=== PATIENT | female | born 1980 | race Caucasian/White ===

== ENCOUNTER 2020-05-08 23:52 | Emergency (ER) | payer BC ==
--- NOTE | 2020-05-09 00:42 | EDM.PDOC ---
ED HPI GENERAL MEDICAL PROBLEM - General Chief Complaint: Lower Extremity Injury/Pain Stated Complaint: LT KNEE INJUR Time Seen by Provider: 05/09/20 00:36 - History of Present Illness INITIAL COMMENTS - FREE TEXT/NARRATIVE: 40-year-old female presents to the emergency room with left knee pain Several hours ago the patient fell directly on her patella. She was assisting her friend who slipped in some water and fell backwards she tried to catch her friend and was partially successful in that but fell directly onto her kneecap. Patient denies any other injuries with this most unfortunate event. The patient does not have a history of significant knee problems. Left Knee Pain Score (Numeric/FACES): 6 - Related Data Allergies Allergy/AdvReac Type Severity Reaction Status Date / Time Sulfa (Sulfonamide Allergy Severe Hives Verified 05/09/20 00:09 Antibiotics) tramadol Allergy Severe Nausea and Verified 05/09/20 00:09 Vomiting Home Meds: Home Meds Albuterol Sulfate [Albuterol Sulfate Hfa] 2 puff PO Q4H PRN 05/09/20 [History] Phentermine HCl 0.5 tab PO DAILY 05/09/20 [History] Past Medical History Respiratory History: Reports: Asthma Hematologic History: Reports: Anemia - Past Surgical History GI Surgical History: Reports: Appendectomy Female Surgical History: Reports: Cystectomy, Hysterectomy, Other (See Below) Other Female Surgeries/Procedures: endometreosis sx Neurological Surgical History: Reports: Lumbar Spine Musculoskeletal Surgical History: Reports: Arthroscopic Knee Social & Family History - Family History Family Medical History: Noncontributory - Tobacco Use Smoking Status *Q: Current Every Day Smoker Years of Tobacco use: 12 Packs/Tins Daily: 0.5 - Caffeine Use Caffeine Use: Reports: Energy Drinks, Tea - Recreational Drug Use Recreational Drug Use: No Review of Systems - Review of Systems Review Of Systems: See Below Constitutional: Reports: No Symptoms Respiratory: Reports: No Symptoms Cardiovascular: Reports: No Symptoms GI/Abdominal: Reports: No Symptoms ED EXAM, GENERAL - Physical Exam Exam: See Below Exam Limited By: No Limitations General Appearance: Alert, No Apparent Distress Head: Atraumatic, Normocephalic Neck: Normal Inspection, Supple, Non-Tender, Full Range of Motion Respiratory/Chest: No Respiratory Distress, Lungs Clear, Normal Breath Sounds Cardiovascular: Regular Rate, Rhythm, No Edema, No Murmur Extremities: Other (Lamination of her left knee shows some mild swelling around the patella no ecchymosis or warmth noted. ACL is intact LCL and MCL appear to be intact. Patient has moderate discomfort underneath the patella with motion.) Course - Vital Signs Last Recorded V/S: Last Vital Signs Temp 36.3 C 05/09/20 00:05 Pulse 87 05/09/20 00:05 Resp 18 05/09/20 00:05 BP 126/90 05/09/20 00:05 Pulse Ox 100 05/09/20 00:05 - Orders/Labs/Meds Orders: Active Orders 24 hr Category Date Time Status Knee 3V Lt [CR] Stat Exams 05/09/20 00:40 Taken - Re-Assessments/Exams Free Text/Narrative Re-Assessment/Exam: 05/09/20 02:06 X-rays of her left knee are negative for acute fracture dislocation however she is got some soft tissue swelling in the vicinity of the patella. I have discussed these findings with the patient the patient will be discharged with instructions to use Aleve 2 twice daily with her morning and evening meals. Departure - Departure Time of Disposition: 02:06 Disposition: Home, Self-Care 01 Clinical Impression: Injury of left patella - Discharge Information Referrals: Kylee Villasenor [facility] [Primary Care Provider] - Forms: ED Department Discharge Additional Instructions: Return to the emergency room with any questions problems or worsening symptoms. Follow-up with your regular provider in 1 week. Use Aleve 2 tablets twice daily with your morning and evening meals. Sepsis Event Note (ED) - Evaluation Sepsis Screening Result: No Definite Risk - Focused Exam Vital Signs: Vital Signs Temp Pulse Resp BP Pulse Ox 05/09/20 00:05 36.3 C 87 18 126/90 100 - My Orders Last 24 Hours: My Active Orders 05/09/20 00:40 Knee 3V Lt [CR] Stat - Assessment/Plan Last 24 Hours: My Active Orders 05/09/20 00:40 Knee 3V Lt [CR] Stat
--- NOTE | 2020-05-09 06:30 | CR ---
Left knee: AP, lateral and sunrise patellar views of the left knee were obtained. Comparison: No prior knee study is available. Mild joint space narrowing is noted within the medial knee. Lateral joint space is preserved. No joint effusion is seen. Patellofemoral joint appears within normal limits. Impression: 1. Mild medial joint space narrowing. 2. Three-view left knee study is otherwise unremarkable. Diagnostic code #2 This report was dictated in MDT
== END 2020-05-09 02:13 | disposition home or self-care (01) ==
LOC: JD.ED 23:52
DX: S89.92XA Unspecified injury of left lower leg, initial encounter (principal); J45.909 Unspecified asthma, uncomplicated; F17.210 Nicotine dependence, cigarettes, uncomplicated; Z88.2 Allergy status to sulfonamides; Z88.5 Allergy status to narcotic agent; W01.0XXA Fall on same level from slipping, tripping and stumbling without subsequent striking against object, initial encounter
CPT/HCPCS: 73562-26-LT; 73562-LT; 99282; 99283

== ENCOUNTER 2022-06-28 14:16 | Emergency (ER) | payer BC, OTHER ==
[2022-06-28] MEDS ORDERED: Ondansetron 4 MG/2 ML SDV IVPUSH ONE (15:26)
[2022-06-28] MEDS: Sodium Chloride 0.9% 10 ML Syringe FLUSH PRN ×2 (15:50→16:01)
[2022-06-28] MEDS ORDERED: Iopamidol 612 MG/ML 100 ML Bottle IVPUSH ONE (15:51)
[2022-06-28] MEDS ORDERED: Iopamidol 612 MG/ML 50 ML SDV IVPUSH ONE (15:52)
[2022-06-28 16:23] LABS: ESTIMATED GFR 110 mL/min (>60)
== END 2022-06-28 17:15 | disposition home or self-care (01) ==
LOC: JD.ED 14:16
DX: R10.12 Left upper quadrant pain (principal); D64.9 Anemia, unspecified; Z88.6 Allergy status to analgesic agent; Z88.2 Allergy status to sulfonamides; Z88.5 Allergy status to narcotic agent
CPT/HCPCS: 36415; 74177; 80053; 82977; 83690; 85025; 86140; 96374; 99284; J2405; J3490; Q9967; 99283

== ENCOUNTER 2023-11-11 18:20 | Emergency (ER) | payer OTHER | END 2023-11-11 19:27 | disposition home or self-care (01) | LOC: JD.ED 18:20 | DX: S80.12XA Contusion of left lower leg, initial encounter (principal); J45.909 Unspecified asthma, uncomplicated; Z88.5 Allergy status to narcotic agent; Z88.2 Allergy status to sulfonamides; Z88.8 Allergy status to other drugs, medicaments and biological substances; Z87.891 Personal history of nicotine dependence; W01.0XXA Fall on same level from slipping, tripping and stumbling without subsequent striking against object, initial encounter | CPT/HCPCS: 73590-26-LT; 73590-LT; 99283 ==

== ENCOUNTER 2023-11-13 19:14 | Emergency (ER) | payer OTHER | END 2023-11-13 20:54 | disposition home or self-care (01) | LOC: JD.ED 19:14 | DX: S80.12XA Contusion of left lower leg, initial encounter (principal); J45.909 Unspecified asthma, uncomplicated; Z88.2 Allergy status to sulfonamides; Z88.5 Allergy status to narcotic agent; Z88.8 Allergy status to other drugs, medicaments and biological substances; Z79.899 Other long term (current) drug therapy; Z86.16 Personal history of COVID-19; Z90.49 Acquired absence of other specified parts of digestive tract; Z90.710 Acquired absence of both cervix and uterus; Z87.891 Personal history of nicotine dependence; W00.0XXA Fall on same level due to ice and snow, initial encounter | CPT/HCPCS: 93971-26-LT; 93971-LT; 99283 ==

== ENCOUNTER 2025-01-28 19:26 | Emergency (ER) | payer BC | END 2025-01-28 20:50 | disposition home or self-care (01) | LOC: JD.ED 19:26 | DX: M79.642 Pain in left hand (principal); M25.532 Pain in left wrist; J45.909 Unspecified asthma, uncomplicated; Z86.16 Personal history of COVID-19; Z90.49 Acquired absence of other specified parts of digestive tract; Z90.710 Acquired absence of both cervix and uterus; Z88.2 Allergy status to sulfonamides; Z88.5 Allergy status to narcotic agent; Z88.8 Allergy status to other drugs, medicaments and biological substances; Z79.899 Other long term (current) drug therapy | CPT/HCPCS: 29125; 73130-26-LT; 73130-LT; 99282; 99284-25 ==